=== PATIENT | male | born 1955 | race Caucasian/White ===

== ENCOUNTER 2020-08-01 20:00 | Inpatient (IN) | payer OTHER ==
[~2020-08-01 20:00] MED LIST: BACTRIM DS TAB1 EACH PO; IBUPROFEN800 MG PO
[2020-08-01 21:24] LABS: CORONAVIRUS 2019 SARS-COV-2 NEGATIVE (NEGATIVE); INFLUENZA A NAA NEGATIVE (NEGATIVE)
[2020-08-01 21:24] LABS: EOSINOPHIL 4.6 % (0-5); HCT 48.9 % (42.0-52.0); HGB 16.5 g/dl (13.2-18.0); LYMPHOCYTE 22.2 % (15-48); MCH 30.3 pg (25.0-31.0); MCHC 33.7 g/dL (32.0-36.0); MCV 89.7 fL (78.0-100.0); MONOCYTE 9.2 % (0-12); MPV 10.2 fL (6.0-9.5); NRBC 0; PLT 347 K/uL (150-400); RBC 5.45 M/uL (4.70-6.00); RDW 12.8 % (11.5-14.0); WBC 14.5 K/uL (4.0-10.5)
[2020-08-01 21:49] LABS: IRON % SATURATION 18.3 %SAT (20-50)
[2020-08-01 21:52] LABS: ALBUMIN 3.8 g/dL (3.4-5.0); BILIRUBIN - TOTAL 0.4 mg/dL (0.2-1.0); BUN/CREAT RATIO (CALC) 14.6 RATIO; C-REACTIVE PROTEIN 2.1 mg/dL (<=0.90); CREATININE 0.89 mg/dL (0.67-1.17); GLOBULIN (CALCULATION) 3.9 g/dL; POTASSIUM 3.6 mmol/L (3.5-5.1); TOTAL PROTEIN 7.7 g/dL (6.4-8.2)
[2020-08-01 22:05] LABS: BILIRUBIN NEGATIVE (NEGATIVE); BLOOD NEGATIVE Ery/uL (NEGATIVE); CLARITY CLEAR (CLEAR); COLOR YELLOW (YELLOW); GLUCOSE (U) NORMAL (NORMAL); LEUKOCYTES NEGATIVE Leu/uL (NEGATIVE); NITRITE NEGATIVE (NEGATIVE); PROTEIN NEGATIVE (NEGATIVE); UROBILINOGEN 0.2 mg/dL (0.2-1.0); pH 5.5 (5.0-9.0)
--- NOTE | 2020-08-02 04:31 | NUR ---
DR BILL NOTIFIED OF ORTHOSTATIC B/P LAYIN/86 HR 147 SITTIN/79 HR 149 STANDIN/80 HR 153 NO NEW ORDERS, WILL CONTINUE TO MONITOR
--- NOTE | 2020-08-02 05:36 | NUR ---
DR BILL NOTIFIED OF PT B/P 113/85 AND HR STILL BEING IN 140s AFTER DOSE OF LABATELOL. URINE WAS SENT DOWN TO BE DRUG SCREENED. WILL CONTINUE TO MONITOR
[2020-08-02 07:27] LABS: AMPHETAMINES NEGATIVE (NEGATIVE); BARBITURATES NEGATIVE (NEGATIVE); ECSTASY (MDMA) NEGATIVE (NEGATIVE); MARIJUANA (THC) NEGATIVE (NEGATIVE); METHADONE NEGATIVE (NEGATIVE); OPIATES NEGATIVE (NEGATIVE); OXYCODONE NEGATIVE (NEGATIVE)
--- NOTE | 2020-08-02 07:30 | NUR ---
DR BILL NOTIFIED OF PT BEING IN WHAT LOOKED TO BE AFLUTTER, EKG ORDERED AND SHOWED SVT. ER DR CAME UP ADENOSINE WAS PUSHED RAPIDLY AND FLUSHED PER DR BILL. ER MD AT BEDSIDE. ER DR CONFIRMED PT WAS IN AFLUTTER IT DID NOT HELP RATE. TELEMETRY STRIPS RECORDED. AMIODARONE BOLUS WAS GIVEN AMD RATE SLOWED DOWN TO LOW 100-110. WILL CONTINUE TO MONITOR, DAYSHIFT RN NOTIFIED
--- NOTE | 2020-08-02 13:08 | NUR ---
RECEIVED REFERRAL PT. DRINKS 3-4 BEERS A DAY AND SMOKES MARIJUANA. MET WITH PT. PT. RESIDES IN HIS OWN HOME. HE IS RETIRED. HE HAS WORKED AT [employer] FOR 20+ YEARS. BUT SINCE HE DECIDED TO RETIRE. HE STATES THAT HE SPENDS ALOT OF TIME WITH HIS FAMILY, HIS CHILDREN AND GRANDCHILDREN. HE DOES HAVE A ROOMMATE. HE STATED THAT SHE USE TO BE HIS GIRLFRIEND, BUT THEY WENT THEIR SEPERATE WAYS. WHEN THEY MET AGAIN SHE NEEDED A PLACE TO STAY SO HE RENTED ONE OF HIS BEDROOMS TO HER. PT. STATED THAT HE DRINKS 3-4 BEERS BUT NOT EVERY DAY. HE STATES THAT IT MAY BE ONCE A WEEK WHENEVER HE GOES TO HIS SON'S HOME. HE STATED THAT HE SMOKES MARIJUANA, BUT IT MAY BE ONCE A WEEK IF THAT. HE STATES THAT HE WILL TAKE A HIT OFF THE CIGARETTE, BUT WILL NOT SMOKE A WHOLE JOINT. HE STATES THAT HE DOES NOT WANT TO STOP DRINKING BEER OR SMOKING MARIJUANA. HE STATS THAT HE DOESN'T THINK HE WILL NEED HH SERVICES. HE DOES NOT USE ANY DME AND DOESN'T FEEL IT WILL BE NECESSARY.
[2020-08-02] MEDS ORDERED: LIPITOR20 MG PO (15:17)
[2020-08-02] MEDS ORDERED: METFORMIN HCL750 MG PO (15:18)
[2020-08-02] MEDS ORDERED: LISINOPRIL-HCT1 EAC1 PO (15:19)
[2020-08-03 03:39] LABS: BASOPHIL 0.9 % (0-2); EOSINOPHIL 7.5 % (0-5); HCT 40.4 % (42.0-52.0); HGB 13.4 g/dl (13.2-18.0); MCH 29.9 pg (25.0-31.0); MCHC 33.2 g/dL (32.0-36.0); MCV 90.2 fL (78.0-100.0); MONOCYTE 9.1 % (0-12); MPV 9.8 fL (6.0-9.5); NEUTROPHIL 45.5 % (41-80); NRBC 0; PLT 257 K/uL (150-400); RBC 4.48 M/uL (4.70-6.00); RDW 12.8 % (11.5-14.0)
[2020-08-03 04:00] LABS: BILIRUBIN - TOTAL 0.6 mg/dL (0.2-1.0); MAGNESIUM 1.9 mg/dL (1.8-2.4); POTASSIUM 3.9 mmol/L (3.5-5.1)
[2020-08-04] MEDS ORDERED: ASPIRIN EC81 MG PO (09:01)
[2020-08-04] MEDS ORDERED: AMIODARONE HCL200 MG PO (09:01)
[2020-08-04] MEDS ORDERED: TOPROL XL 25MG25 MG PO (09:01)
== END 2020-08-04 10:30 | disposition home or self-care (01) | DRG 281 ==
LOC: FER 20:00 → FICU 08-02 02:12
PROVIDERS: Emergency Medicine; Hospitalist; ADMIT Internal Medicine
DX: I48.91 Unspecified atrial fibrillation (principal); I21.A1 Myocardial infarction type 2; E87.2 Acidosis; I10 Essential (primary) hypertension; E78.5 Hyperlipidemia, unspecified; F10.10 Alcohol abuse, uncomplicated; F17.210 Nicotine dependence, cigarettes, uncomplicated; K21.9 Gastro-esophageal reflux disease without esophagitis; E11.65 Type 2 diabetes mellitus with hyperglycemia; G47.30 Sleep apnea, unspecified; Z79.84 Long term (current) use of oral hypoglycemic drugs; Z79.899 Other long term (current) drug therapy; Z79.82 Long term (current) use of aspirin
CPT/HCPCS: 36415; 36600; 71250; 80053; 80061; 80305; 81003; 82009; 82550; 82728; 82803; 82962; 83036; 83540; 83550; 83605; 83615; 83735; 83880; 84100; 84145; 84439; 84443; 84484; 85025; 85379; 86140; 93005; 94010; G0480; J0153; J0282; J1650; J2060; J2543; J7030; J7060; Q9967; U0002